=== PATIENT | female | born 1995 | race Caucasian/White ===

== ENCOUNTER 2021-05-20 15:56 | Emergency (ER) | payer OTHER ==
[~2021-05-20] VITALS: Ht 175.3 cm; Wt 102.1 kg
--- NOTE | 2021-05-20 16:30 | NUR ---
26 yrs female 6 wk pregnent c/o v.bleeding started today pink color smale amt dineses abdominal pain or v.bleeding abdomine soft none tender to touch obeses
[2021-05-20 16:59] LABS: HEMATOCRIT 35.6 % (31.2-41.9); MEAN CORPUSCULAR HEMOGLOBIN 29.5 uug (24.7-32.8); MEAN CORPUSCULAR VOLUME 88.7 fL (75.5-95.3); PLATELET COUNT (AUTO) 291 K/uL (179-408)
--- NOTE | 2021-05-20 17:01 | NUR ---
blood drow by lab ua sent abdominal and pelvic US done at bed [facility]
[2021-05-20 17:05] LABS: *BILIRUBIN,URIN NEGATIVE (NEGATIVE); *BLOOD, URINE 2+ (NEGATIVE); *CLARITY,URINE CLEAR (CLEAR); *COLOR,URINE YELLOW (YELLOW); *KETONES,URINE 2+ (NEGATIVE); *UROBILINOGEN,URINE 0.2 E.U./dl (NORMAL); LEUKOCYTE ESTERASE ,URINE TRACE (NEGATIVE); NITRITE, URINE NEGATIVE (NEGATIVE); UGLUCOSE NEGATIVE (NEGATIVE)
[2021-05-20 17:07] LABS: CREATININE 0.7 mg/dL (0.6-1.3); POTASSIUM 3.5 mmol/L (3.5-5.1)
[2021-05-20 17:13] LABS: BILIRUBIN,TOTAL 0.4 mg/dL (0.2-1.0); TOTAL PROTEIN, SERUM 7.7 g/dL (6.4-8.2)
[2021-05-20 17:14] LABS: *URINE HCG, QUAL POSITIVE (NEGATIVE)
[2021-05-20 17:35] LABS: BACTERIA,URINE FEW /HPF (NONE SEEN); RBC,URINE 0-3 /HPF (0-3)
[2021-05-20 17:36] LABS: SQUAMOUS EPITHELIAL CELL,UR NONE SEEN /HPF (NONE SEEN)
--- NOTE | 2021-05-20 17:56 | NUR ---
no active v. bleeding d/c instraction and fallow up care given to pt fully and vervlized understood Dr VALLEJO sporabia with pt no abdominal no n/v
[2021-05-20 18:10] VITALS: BP 136/67
== END 2021-05-20 18:21 | disposition home or self-care (01) ==
LOC: ER 16:00
DX: O20.0 Threatened abortion (principal); Z3A.01 Less than 8 weeks gestation of pregnancy
CPT/HCPCS: 36415; 76856; 84703; 85025; A4663